=== PATIENT | female | born 1960 | race Caucasian/White ===

== ENCOUNTER 2018-12-06 09:21 | Day surgery (SDC) | payer MEDICAID, OTHER ==
[~2018-12-06] VITALS: Ht 147.3 cm; Wt 51.3 kg
[2018-12-06 10:05] VITALS: Ht 147.3 cm; Wt 51.3 kg
[2018-12-06] MEDS ORDERED: METF-480 PO (10:18)
[2018-12-06] MEDS ORDERED: ASPI-817 PO (10:18)
[2018-12-06] MEDS ORDERED: LISI-471 PO (10:18)
[2018-12-06] MEDS ORDERED: ATOR20TA38 PO (10:18)
[2018-12-06 10:38] VITALS: BP 155/66; PULSE 74; RESP 20
[2018-12-06] MEDS ORDERED: FENTAnyl 50 MCG/ML VIAL ONE (11:31)
[2018-12-06] MEDS ORDERED: MIDAZOLAM 1 MG/ML 2 ML INJ ONE ×2 (11:31)
[2018-12-06 11:55] VITALS: BP 96/51; RESP 14
== END 2018-12-06 11:56 | disposition home or self-care (01) ==
LOC: GIL 09:21
PROVIDERS: ATTEND Internal Medicine Gastroenterology
DX: Z12.11 Encounter for screening for malignant neoplasm of colon (principal); K64.8 Other hemorrhoids; I10 Essential (primary) hypertension; E11.9 Type 2 diabetes mellitus without complications
CPT/HCPCS: 45378; 82962; J2250; J3010